=== PATIENT | female | born 1950 | race Caucasian/White ===

== ENCOUNTER 2021-11-05 07:40 | Day surgery (SDC) | payer BC, SELFPAY ==
[~2021-11-05] VITALS: Ht 163.8 cm; Wt 70.8 kg
[~2021-11-05 07:40] MED LIST: CEFAZOLIN SOD 1 GM in D5W 50 ML IV ONE
[2021-11-05] MEDS ORDERED: ACETAMINOPHEN I.V. 1000 MG 100 ML IV ONE (12:34)
[2021-11-05] MEDS ORDERED: KETOROLAC TROMETHAMINE 30 MG VIAL ONE (12:39)
[2021-11-05] MEDS ORDERED: NS IRRIG SOLN 1000 ML IR ONE (12:39)
[2021-11-05] MEDS ORDERED: LR 1,000 ML IV.SOLN IV ONE (12:39)
[2021-11-05] MEDS ORDERED: MIDAZOLAM HCL 5 MG/5 ML VIAL ONE (12:39)
[2021-11-05] MEDS ORDERED: DEXAMETHASONE SOD PHOSPHATE 4 MG/ML VIAL ONE (12:39)
[2021-11-05] MEDS ORDERED: fentaNYL CITRATE 250 MCG/5 ML AMP ONE (12:39)
[2021-11-05] MEDS ORDERED: METOCLOPRAMIDE HCL 10 MG/2 ML VIAL ONE (12:39)
[2021-11-05] MEDS ORDERED: PROPOFOL 200MG/ 20ML VIAL (DIPRIVAN) IV ONE (12:39)
[2021-11-05] MEDS ORDERED: CEFAZOLIN 1 GM IVPB PREMIX 50 ML IV ONE (12:39)
[2021-11-05] MEDS ORDERED: GLYCOPYRROLATE 0.2 MG/ML VIAL ONE (12:39)
[2021-11-05] MEDS ORDERED: SEVOFLURANE 15 MIN GAS INH ONE (12:39)
[2021-11-05] MEDS ORDERED: MEPERIDINE HCL/PF 25 MG/ML DISP.SYRIN IVP PRN (13:45)
[2021-11-05] MEDS ORDERED: hydrALAZINE HCL 20 MG/ML VIAL IVP PRN (13:45)
[2021-11-05] MEDS ORDERED: MIDAZOLAM HCL 2 MG/2 ML VIAL (VERSED) IVP PRN (13:45)
[2021-11-05] MEDS ORDERED: HYDROmorphone 1 MG/ML INJ. CARTRIDGE IVP PRN ×2 (13:45)
[2021-11-05] MEDS ORDERED: ONDANSETRON HCL 4 MG/2 ML VIAL IVP PRN (13:45)
[2021-11-05] MEDS ORDERED: LR 1,000 ML IV SCH (13:45)
[2021-11-05] MEDS ORDERED: D5/0.45 NS 1,000 ML IV SCH (14:30)
[2021-11-05] MEDS ORDERED: HYDROcodone/ACETAMIN 5-325 MG TAB (NORCO/ VICODIN) PO PRN (14:30)
[2021-11-05 17:13] VITALS: BP_SYST 149
== END 2021-11-05 16:10 | disposition home or self-care (01) ==
LOC: SDS 07:40 → SMU 07:41 → SDS 16:10
PROVIDERS: ATTEND Colon & Rectal Surgery
DX: C50.912 Malignant neoplasm of unspecified site of left female breast (principal); I10 Essential (primary) hypertension; G43.909 Migraine, unspecified, not intractable, without status migrainosus; F41.9 Anxiety disorder, unspecified; J44.9 Chronic obstructive pulmonary disease, unspecified; E78.5 Hyperlipidemia, unspecified; G47.00 Insomnia, unspecified; M81.0 Age-related osteoporosis without current pathological fracture; Z20.822 Contact with and (suspected) exposure to COVID-19; Z79.899 Other long term (current) drug therapy
CPT/HCPCS: 19281; 19301; 36415; 38525; 78195; 87426; 88305; 88307; 88333; 88342; A4648; A9541; J0131; J0690 ×2; J1100; J1885; J2250; J2704; J2765; J3010; J3490; J7060; J7120; U0003